=== PATIENT | male | born 1975 | race American Indian/Alaskan Native ===

== ENCOUNTER 2017-01-04 10:37 | Outpatient (CLI) | payer BC ==
--- NOTE | 2017-01-04 12:19 | XRay Report ---
LUMBOSACRAL SPINE, FIVE VIEWS: HISTORY: Back pain. Normal bone mineralization. Normal height and alignment of the lumbar vertebral bodies. No bone lesion, fracture or subluxation. Mild disc space narrowing is noted at L4-5 and L5-S1. The oblique images demonstrate no evidence for pars defect or high-grade neural foraminal narrowing. The sacrum and SI joints are unremarkable. IMPRESSION: Mild lumbar spondylosis as described. No acute process.
== END 2017-01-04 10:38 | disposition home or self-care (01) ==
LOC: XRAY 10:37
PROVIDERS: ATTEND Internal Medicine
DX: M47.896 Other spondylosis, lumbar region (principal)
CPT/HCPCS: 72110